=== PATIENT | male | born 1960 | race Caucasian/White ===

== ENCOUNTER 2016-11-15 15:27 | Inpatient (IN) | payer MEDICAID ==
[~2016-11-15 15:27] MED LIST: ALBUTEROL0.83 MG/ML IH; ALDACTONE 25MG25 MG PO; AMOXICILLIN 50500 MG PO; ASPIR LOW81 MG PO; AURALGAN EAR DR15 ML OT; CARVEDILOL12.5 MG PO; ED ZITHROM6 TAB/BOTT PO; NITROGLYCERIN0.4 MG SL; PREDNISONE20 M1 PO; SPIRIVA18 MCG IH; SYMBICORT1 AE2 IH; TOPROL XL25 MG PO; VENTOLIN0.09 MG IH; VIBRAMYCIN100 MG PO; ZESTRIL10 M1 PO
[2016-11-15 16:14] VITALS: BP 77/41
[2016-11-15] MEDS ORDERED: COREG12.5 M1 PO (16:27)
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
[2016-11-15 21:07] VITALS: BP 103/62
[2016-11-15 21:08] VITALS: BP 103/62
--- NOTE | 2016-11-15 22:01 | NUR ---
Pt is made aware that his regular home meds will be held this PM r/t BP. Will reassess in the morning.
[2016-11-15 22:54] VITALS: BP 97/57
[2016-11-16 03:18] VITALS: BP 82/52
--- NOTE | 2016-11-16 03:36 | NUR ---
provider carla garza notified of vs 82/52, 86, 95%, 14, 97.8. pt states that he feels fine, states that he feels better than when he came to the er, pt was sleeping
[2016-11-16 06:24] VITALS: BP 95/55
--- NOTE | 2016-11-16 07:00 | NUR ---
REPORT RECEIVED FROM JHON JARRETT.
--- NOTE | 2016-11-16 07:18 | NUR ---
REST IN BED ON RT SIDE. EXTERNAL DEFIBRILLATOR IN PLACE. TELE ALSO IN PLACE, NSR. DENIES PAIN AT PRESENT. NS INFUSING PER ORDERS. IV SITE APPEARS NORMAL AND INTACT. PTIENT REPORTS FEELING "READY TO GO HOME." CALL LIGHT IN REACH.
[2016-11-16 11:13] VITALS: BP 91/55
[2016-11-16 11:28] VITALS: BP 100/58
--- NOTE | 2016-11-16 12:00 | NUR ---
Pt anticipates discharge to home w/ family and states he has no additional needs.
--- NOTE | 2016-11-16 12:05 | NUR ---
SITTING UPRIGHT IN BED FOR LUNCH. VISITOR PRESENT.
[2016-11-16 13:32] VITALS: BP 106/54
--- NOTE | 2016-11-16 13:43 | NUR ---
DISCHARGE INSTRUCTIONS REVIEWED WITH PATIENT. HE HAS NO QUESTIONS. HOME MEDS RETURNED TO PATIENT. HE DECLINES W/C ASSISTANCE TO VEHICLE. 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 SIGNIFICANT OTHER TO TRANSPORT HOME.
== END 2016-11-16 13:45 | disposition home or self-care (01) | DRG 684 ==
LOC: ED 15:27 → MED/SURG 20:01 → ED 20:01 → MED/SURG 11-16 13:45
PROVIDERS: ADMIT Nurse Practitioner Family
DX: N17.9 Acute kidney failure, unspecified (principal); B34.9 Viral infection, unspecified; I95.9 Hypotension, unspecified; E86.0 Dehydration; E83.39 Other disorders of phosphorus metabolism; R53.81 Other malaise; R53.83 Other fatigue; R91.8 Other nonspecific abnormal finding of lung field; I25.10 Atherosclerotic heart disease of native coronary artery without angina pectoris; J44.9 Chronic obstructive pulmonary disease, unspecified; I25.2 Old myocardial infarction; Z87.891 Personal history of nicotine dependence; Z79.82 Long term (current) use of aspirin
CPT/HCPCS: J7030

== ENCOUNTER → 2016-11-21 | Outpatient (CLI) | payer MEDICAID ==
[~2016-11-21] MED LIST changes: +COREG12.5 M1 PO
== END ==
LOC: VAS 16:16
DX: I42.9 Cardiomyopathy, unspecified (principal)

== ENCOUNTER → 2017-02-18 | Outpatient (CLI) | payer MEDICAID | LOC: LAB 07:53 | DX: I25.10 Atherosclerotic heart disease of native coronary artery without angina pectoris (principal); I43 Cardiomyopathy in diseases classified elsewhere; J44.9 Chronic obstructive pulmonary disease, unspecified ==

== ENCOUNTER → 2017-05-21 | Outpatient (CLI) | payer MEDICAID | LOC: LAB 07:38 | DX: I25.10 Atherosclerotic heart disease of native coronary artery without angina pectoris (principal); J44.9 Chronic obstructive pulmonary disease, unspecified; I43 Cardiomyopathy in diseases classified elsewhere ==

== ENCOUNTER → 2017-06-12 | Outpatient (CLI) | payer MEDICAID | LOC: RAD 06:57 | DX: S43.492A Other sprain of left shoulder joint, initial encounter (principal); X58.XXXA Exposure to other specified factors, initial encounter; M75.82 Other shoulder lesions, left shoulder ==

== ENCOUNTER 2017-07-26 08:00 | Outpatient (RCR) | payer MEDICAID | END 2017-07-26 08:30 | disposition home or self-care (01) | LOC: PT 08:00 | DX: M75.02 Adhesive capsulitis of left shoulder (principal) ==

== ENCOUNTER → 2017-08-20 | Outpatient (CLI) | payer MEDICAID ==
[2017-08-20 10:40] LABS: HEMATOCRIT 41.6 % (42.0-52.0); HEMOGLOBIN 14.2 g/dL (13.5-18.0); MEAN CELL VOLUME 92 fl (78-100); MEAN CORPUSCULAR HEMOGLOBIN 31 pg (27-31); MEAN CORPUSCULAR HGB CONC 34 g/dL (33-37); MEAN PLATELET VOLUME 10.8 fl (7.4-10.4); PLATELET COUNT 282 K/mm3 (130-400); RED BLOOD COUNT 4.52 M/mm3 (4.20-5.60); WHITE BLOOD COUNT 7.3 K/mm3 (4.8-10.8)
[2017-08-20 10:47] LABS: ALBUMIN 4.1 g/dL (3.5-5.0); BUN/CREATININE RATIO 14.5 (6.0-26.0); CALCIUM 9.5 mg/dL (8.4-10.2); POTASSIUM 4.7 mmol/L (3.6-5.0); TOTAL BILIRUBIN 0.6 mg/dL (0.2-1.3); TOTAL PROTEIN 7.2 g/dL (6.3-8.2)
[2017-08-20 11:45] LABS: ERYTHROCYTE SEDIMENTATION RATE 4 mm/hr (0-20)
[2017-08-20 11:55] LABS: LYMPHOCYTE 29 % (20-51); MONOCYTE 6 % (3-10); NEUTROPHILS 54 % (42-75)
== END ==
LOC: LAB 10:01
PROVIDERS: Internal Medicine
DX: I25.10 Atherosclerotic heart disease of native coronary artery without angina pectoris (principal); Z12.11 Encounter for screening for malignant neoplasm of colon; I43 Cardiomyopathy in diseases classified elsewhere; Z12.5 Encounter for screening for malignant neoplasm of prostate

== ENCOUNTER → 2017-08-28 | Outpatient (CLI) | payer MEDICAID | LOC: LAB 12:42 | DX: Z12.11 Encounter for screening for malignant neoplasm of colon (principal) ==

== ENCOUNTER → 2017-11-12 | Outpatient (CLI) | payer MEDICAID ==
[2017-11-12 10:59] LABS: ALBUMIN 3.9 g/dL (3.5-5.0); CALCIUM 9.1 mg/dL (8.4-10.2); POTASSIUM 4.3 mmol/L (3.6-5.0); TOTAL BILIRUBIN 0.4 mg/dL (0.2-1.3); TOTAL PROTEIN 7.1 g/dL (6.3-8.2)
[2017-11-12 11:12] LABS: HEMOGLOBIN 14.6 g/dL (13.5-18.0); MEAN CELL VOLUME 92 fl (78-100); MEAN CORPUSCULAR HEMOGLOBIN 31 pg (27-31); MEAN CORPUSCULAR HGB CONC 33 g/dL (33-37); PLATELET COUNT 279 K/mm3 (130-400); RED BLOOD COUNT 4.79 M/mm3 (4.20-5.60); RED CELL DISTRIBUTION WIDTH 13.2 % (11.5-14.5); WHITE BLOOD COUNT 6.8 K/mm3 (4.8-10.8)
[2017-11-12 11:52] LABS: LYMPHOCYTE 20 % (20-51); MONOCYTE 8 % (3-10); NEUTROPHILS 57 % (42-75)
== END ==
LOC: LAB 10:27
PROVIDERS: Internal Medicine
DX: I25.10 Atherosclerotic heart disease of native coronary artery without angina pectoris (principal); I43 Cardiomyopathy in diseases classified elsewhere; J44.9 Chronic obstructive pulmonary disease, unspecified

== ENCOUNTER 2018-03-05 00:50 | Emergency (ER) | payer MEDICAID ==
[~2018-03-05] VITALS: Ht 175.3 cm; Wt 63.6 kg
[2018-03-05] MEDS ORDERED: LIPITOR20 M2 PO (01:14)
[2018-03-05 01:36] LABS: HEMATOCRIT 41.8 % (42.0-52.0); HEMOGLOBIN 13.9 g/dL (13.5-18.0); MEAN CELL VOLUME 91 fl (78-100); MEAN CORPUSCULAR HEMOGLOBIN 30 pg (27-31); MEAN CORPUSCULAR HGB CONC 33 g/dL (33-37); MEAN PLATELET VOLUME 9.9 fl (7.4-10.4); PLATELET COUNT 283 K/mm3 (130-400); RED BLOOD COUNT 4.61 M/mm3 (4.20-5.60); RED CELL DISTRIBUTION WIDTH 13.4 % (11.5-14.5); WHITE BLOOD COUNT 10.7 K/mm3 (4.8-10.8)
[2018-03-05 01:46] LABS: BUN/CREATININE RATIO 14.4 (6.0-26.0); CALCIUM 8.5 mg/dL (8.4-10.2); POTASSIUM 4.6 mmol/L (3.6-5.0); TOTAL PROTEIN 7.1 g/dL (6.3-8.2)
[2018-03-05 01:50] LABS: LYMPHOCYTE 24 % (20-51); MONOCYTE 6 % (3-10); NEUTROPHILS 58 % (42-75)
[2018-03-05 01:55] LABS: TOTAL BILIRUBIN 0.4 mg/dL (0.2-1.3)
[2018-03-05] MEDS ORDERED: TUSSIONEX PENN115 ML PO (02:28)
[2018-03-05] MEDS ORDERED: PREDNISONE10 MG PO (02:28)
[2018-03-05] MEDS ORDERED: TESSALON PERLE100 M1 PO (02:28)
[2018-03-05] MEDS ORDERED: CIPRO 500MG TA500 MG PO (02:29)
[2018-03-05 02:46] VITALS: BP 97/64
== END 2018-03-05 02:46 | disposition home or self-care (01) ==
LOC: ED 00:50
PROVIDERS: Nurse Practitioner Family
DX: J44.0 Chronic obstructive pulmonary disease with (acute) lower respiratory infection (principal); J18.0 Bronchopneumonia, unspecified organism; J44.1 Chronic obstructive pulmonary disease with (acute) exacerbation; J20.9 Acute bronchitis, unspecified; I25.2 Old myocardial infarction; I25.10 Atherosclerotic heart disease of native coronary artery without angina pectoris; Z79.82 Long term (current) use of aspirin; F17.210 Nicotine dependence, cigarettes, uncomplicated
CPT/HCPCS: J7512

== ENCOUNTER → 2018-08-11 | Outpatient (CLI) | payer MEDICAID ==
[~2018-08-11] VITALS: Ht 170.2 cm; Wt 61.4 kg
[~2018-08-11] MED LIST changes: +ADVAIR DISKUS1 DS2 IH; +CIPRO 500MG TA500 MG PO; +LIPITOR20 M2 PO; +PREDNISONE10 MG PO; +TESSALON PERLE100 M1 PO; +TUSSIONEX PENN115 ML PO
[2018-08-11 09:38] LABS: HEMATOCRIT 44.6 % (42.0-52.0); HEMOGLOBIN 14.8 g/dL (13.5-18.0); MEAN CELL VOLUME 92 fl (78-100); MEAN CORPUSCULAR HEMOGLOBIN 31 pg (27-31); MEAN CORPUSCULAR HGB CONC 33 g/dL (33-37); MEAN PLATELET VOLUME 10.3 fl (7.4-10.4); PLATELET COUNT 281 K/mm3 (130-400); RED BLOOD COUNT 4.85 M/mm3 (4.20-5.60); RED CELL DISTRIBUTION WIDTH 13.1 % (11.5-14.5); WHITE BLOOD COUNT 7.9 K/mm3 (4.8-10.8)
[2018-08-11 09:40] VITALS: BP 116/70
[2018-08-11 09:46] LABS: ALBUMIN 4.1 g/dL (3.5-5.0); POTASSIUM 4.8 mmol/L (3.6-5.0); TOTAL BILIRUBIN 0.6 mg/dL (0.2-1.3); TOTAL PROTEIN 6.8 g/dL (6.3-8.2)
[2018-08-11 11:50] LABS: ERYTHROCYTE SEDIMENTATION RATE 5 mm/hr (0-20); LYMPHOCYTE 22 % (20-51); MONOCYTE 9 % (3-10); NEUTROPHILS 59 % (42-75)
[2018-08-12 02:59] LABS: TESTOSTERONE 949 ng/dL (221-716)
== END ==
LOC: AMSURD 09:21
PROVIDERS: Internal Medicine
DX: M25.511 Pain in right shoulder (principal); R06.02 Shortness of breath; I25.10 Atherosclerotic heart disease of native coronary artery without angina pectoris; Z12.11 Encounter for screening for malignant neoplasm of colon; Z12.5 Encounter for screening for malignant neoplasm of prostate; N52.9 Male erectile dysfunction, unspecified

== ENCOUNTER → 2018-08-18 | Outpatient (CLI) | payer MEDICAID ==
[2018-08-11 09:40] VITALS: BP 116/70
== END ==
LOC: LAB 11:30
DX: Z12.11 Encounter for screening for malignant neoplasm of colon (principal); I25.10 Atherosclerotic heart disease of native coronary artery without angina pectoris; N52.9 Male erectile dysfunction, unspecified

== ENCOUNTER → 2018-09-23 | Day surgery (SDC) | payer MEDICAID ==
[2018-08-11 09:40] VITALS: BP 116/70
== END ==
LOC: MSO 12:51
DX: Z12.11 Encounter for screening for malignant neoplasm of colon (principal); Z80.0 Family history of malignant neoplasm of digestive organs; I42.9 Cardiomyopathy, unspecified; I25.10 Atherosclerotic heart disease of native coronary artery without angina pectoris; I10 Essential (primary) hypertension; F17.210 Nicotine dependence, cigarettes, uncomplicated; J44.9 Chronic obstructive pulmonary disease, unspecified; Z79.899 Other long term (current) drug therapy; Z79.82 Long term (current) use of aspirin
CPT/HCPCS: 00812; J2704; J7120

== ENCOUNTER → 2019-02-10 | Outpatient (CLI) | payer MEDICAID ==
[2018-08-11 09:40] VITALS: BP 116/70
[2019-02-10 08:42] LABS: HEMOGLOBIN 13.9 g/dL (13.5-18.0); MEAN CELL VOLUME 90 fl (78-100); MEAN CORPUSCULAR HEMOGLOBIN 29 pg (27-31); MEAN CORPUSCULAR HGB CONC 32 g/dL (33-37); MEAN PLATELET VOLUME 10.5 fl (7.4-10.4); PLATELET COUNT 273 K/mm3 (130-400); RED BLOOD COUNT 4.77 M/mm3 (4.20-5.60); RED CELL DISTRIBUTION WIDTH 13.6 % (11.5-14.5); WHITE BLOOD COUNT 7.4 K/mm3 (4.8-10.8)
[2019-02-10 08:58] LABS: POTASSIUM 4.4 mmol/L (3.6-5.0); TOTAL BILIRUBIN 0.4 mg/dL (0.2-1.3)
[2019-02-10 09:42] LABS: LYMPHOCYTE 28 % (20-51); MONOCYTE 11 % (3-10); NEUTROPHILS 47 % (42-75)
[2019-02-10 10:02] LABS: ERYTHROCYTE SEDIMENTATION RATE 9 mm/hr (0-20)
== END ==
LOC: LAB 08:25
PROVIDERS: Internal Medicine
DX: I25.10 Atherosclerotic heart disease of native coronary artery without angina pectoris (principal); N52.9 Male erectile dysfunction, unspecified

== ENCOUNTER → 2020-04-04 | Outpatient (CLI) | payer MEDICAID ==
[2018-08-11 09:40] VITALS: BP 116/70
[2020-04-04 08:40] LABS: POTASSIUM 4.7 mmol/L (3.5-5.1)
[2020-04-04 08:41] LABS: CALCIUM 9.1 mg/dL (8.3-10.5)
[2020-04-04 08:42] LABS: TOTAL PROTEIN 7.1 g/dL (6.4-8.3)
[2020-04-04 08:44] LABS: TOTAL BILIRUBIN 0.4 mg/dL (0.2-1.2)
[2020-04-04 08:49] LABS: MAGNESIUM 2.13 mg/dL (1.60-2.60)
[2020-04-04 09:23] LABS: BASO # 0.1 (0.02-0.10); EOS # 0.5 (0.04-0.40); HEMATOCRIT 43.4 % (42.0-52.0); HEMOGLOBIN 14.2 g/dL (13.5-18.0); LYMPH# 1.7 (1.50-4.00); MEAN CELL VOLUME 91 fl (78-100); MEAN CORPUSCULAR HEMOGLOBIN 30 pg (27-31); MEAN CORPUSCULAR HGB CONC 33 g/dL (33-37); MEAN PLATELET VOLUME 10.3 fl (7.4-10.4); NEU # 6.6 (1.40-6.50); PLATELET COUNT 368 K/mm3 (130-400); RED BLOOD COUNT 4.77 M/mm3 (4.20-5.60); RED CELL DISTRIBUTION WIDTH 13.2 % (11.5-14.5); WHITE BLOOD COUNT 9.9 K/mm3 (4.8-10.8)
[2020-04-04 10:07] LABS: EOS % 5.4 % (0.0-4.0)
[2020-04-04 11:16] LABS: ERYTHROCYTE SEDIMENTATION RATE 23 mm/hr (0-20)
== END ==
LOC: LAB 08:18
PROVIDERS: Internal Medicine
DX: Z12.5 Encounter for screening for malignant neoplasm of prostate (principal); I25.10 Atherosclerotic heart disease of native coronary artery without angina pectoris; I43 Cardiomyopathy in diseases classified elsewhere; R91.8 Other nonspecific abnormal finding of lung field

== ENCOUNTER → 2020-04-08 | Outpatient (CLI) | payer MEDICAID ==
[2018-08-11 09:40] VITALS: BP 116/70
== END ==
LOC: CARDREHAB 07:49 → CARDLAB 14:39
DX: I43 Cardiomyopathy in diseases classified elsewhere (principal)
CPT/HCPCS: A9500

== ENCOUNTER → 2020-11-14 | Outpatient (CLI) | payer MEDICAID ==
[2018-08-11 09:40] VITALS: BP 116/70
== END ==
LOC: LAB 11:12
DX: R05 Cough (principal); Z20.822 Contact with and (suspected) exposure to COVID-19

== ENCOUNTER → 2022-01-23 | Outpatient (CLI) | payer MEDICAID | LOC: RAD 08:46 | DX: J44.1 Chronic obstructive pulmonary disease with (acute) exacerbation (principal) ==

== ENCOUNTER 2022-06-12 06:38 | Emergency (ER) | payer MEDICAID ==
[~2022-06-12] VITALS: Ht 172.7 cm; Wt 65.9 kg
[2022-06-12] MEDS ORDERED: COREG12.5 M1 PO (06:51)
[2022-06-12] MEDS ORDERED: OMEPRAZOLE40 MG PO (06:52)
[2022-06-12] MEDS ORDERED: SINGULAIR PO (06:52)
[2022-06-12] MEDS ORDERED: XYZAL5 MG PO (06:52)
[2022-06-12] MEDS ORDERED: CYCLOBENZAPRINE10 M1 PO (08:42)
[2022-06-12 08:58] VITALS: BP 122/77
== END 2022-06-12 08:58 | disposition home or self-care (01) ==
LOC: ED 06:38
DX: M62.830 Muscle spasm of back (principal); F17.210 Nicotine dependence, cigarettes, uncomplicated
CPT/HCPCS: J1885; J2360

== ENCOUNTER → 2022-07-16 | Outpatient (CLI) | payer MEDICAID ==
[~2022-07-16] MED LIST changes: +CYCLOBENZAPRINE10 M1 PO; +OMEPRAZOLE40 MG PO; +SINGULAIR PO; +XYZAL5 MG PO
[2022-07-16 09:08] LABS: BASO # 0.04 K/mm3 (0.02-0.10); EOS # 0.67 K/mm3 (0.04-0.40); EOS % 9.2 % (0.0-4.0); HEMATOCRIT 43.2 % (42.0-52.0); LYMPH# 1.47 K/mm3 (1.50-4.00); MEAN CELL VOLUME 92 fl (78-100); MEAN CORPUSCULAR HEMOGLOBIN 30 pg (27-31); MEAN CORPUSCULAR HGB CONC 32 g/dL (33-37); MEAN PLATELET VOLUME 9.6 fl (7.4-10.4); MONO # 0.53 K/mm3 (0.20-0.80); NEU # 4.55 K/mm3 (1.40-6.50); PLATELET COUNT 283 K/mm3 (130-400); WHITE BLOOD COUNT 7.3 K/mm3 (4.8-10.8)
[2022-07-16 10:17] LABS: ALBUMIN 3.9 g/dL (3.5-5.0); POTASSIUM 4.3 mmol/L (3.5-5.1)
[2022-07-16 10:18] LABS: CALCIUM 9.2 mg/dL (8.3-10.5)
[2022-07-16 10:20] LABS: TOTAL PROTEIN 6.8 g/dL (6.4-8.3)
[2022-07-16 10:21] LABS: TOTAL BILIRUBIN 0.4 mg/dL (0.2-1.2)
[2022-07-16 10:28] LABS: MAGNESIUM 2.17 mg/dL (1.60-2.60)
[2022-07-16 23:01] LABS: TESTOSTERONE 712 ng/dL (221-716)
== END ==
LOC: LAB 08:48
PROVIDERS: Internal Medicine
DX: Z12.5 Encounter for screening for malignant neoplasm of prostate (principal); Z12.11 Encounter for screening for malignant neoplasm of colon; I25.10 Atherosclerotic heart disease of native coronary artery without angina pectoris; I42.9 Cardiomyopathy, unspecified; J44.1 Chronic obstructive pulmonary disease with (acute) exacerbation; J45.40 Moderate persistent asthma, uncomplicated; K90.9 Intestinal malabsorption, unspecified; F52.21 Male erectile disorder

== ENCOUNTER 2023-11-16 20:08 | Emergency (ER) | payer MEDICAID ==
[~2023-11-16] VITALS: Ht 172.7 cm; Wt 61.4 kg
[2023-11-16] MEDS ORDERED: TRELEGY ELLIPT1 EAC1 IH (20:23)
[2023-11-16 20:43] LABS: BASO # 0.02 K/mm3 (0.02-0.10); EOS # 0.06 K/mm3 (0.04-0.40); EOS % 0.9 % (0.0-4.0); HEMOGLOBIN 13.8 g/dL (13.5-18.0); LYMPH# 1.22 K/mm3 (1.50-4.00); MEAN CELL VOLUME 90 fl (78-100); MEAN CORPUSCULAR HEMOGLOBIN 30 pg (27-31); MEAN CORPUSCULAR HGB CONC 34 g/dL (33-37); MEAN PLATELET VOLUME 10.2 fl (7.4-10.4); MONO # 0.65 K/mm3 (0.20-0.80); NEU # 4.78 K/mm3 (1.40-6.50); PLATELET COUNT 241 K/mm3 (130-400); RED BLOOD COUNT 4.58 M/mm3 (4.20-5.60); RED CELL DISTRIBUTION WIDTH 12.8 % (11.5-14.5); WHITE BLOOD COUNT 6.7 K/mm3 (4.8-10.8)
[2023-11-16] MEDS ORDERED: PREDNISONE20 M1 PO (21:42)
[2023-11-16] MEDS ORDERED: GUAIFEN-CODEINE5 ML PO (21:42)
[2023-11-16 21:54] VITALS: BP 116/83
== END 2023-11-16 21:54 | disposition home or self-care (01) ==
LOC: ED 20:08
PROVIDERS: Family Medicine
DX: J44.9 Chronic obstructive pulmonary disease, unspecified (principal); F17.210 Nicotine dependence, cigarettes, uncomplicated

== ENCOUNTER → 2024-07-28 | Outpatient (CLI) | payer MEDICAID ==
[~2024-07-28] MED LIST changes: +GUAIFEN-CODEINE5 ML PO; +TRELEGY ELLIPT1 EAC1 IH
[2024-07-28 10:05] LABS: BASO # 0.01 K/mm3 (0.02-0.10); EOS # 0.26 K/mm3 (0.04-0.40); EOS % 4.3 % (0.0-4.0); HEMATOCRIT 41.4 % (42.0-52.0); HEMOGLOBIN 13.3 g/dL (13.5-18.0); MEAN CELL VOLUME 88 fl (78-100); MEAN CORPUSCULAR HEMOGLOBIN 28 pg (27-31); MEAN CORPUSCULAR HGB CONC 32 g/dL (33-37); MONO # 0.46 K/mm3 (0.20-0.80); NEU # 3.72 K/mm3 (1.40-6.50); PLATELET COUNT 277 K/mm3 (130-400); RED BLOOD COUNT 4.73 M/mm3 (4.20-5.60); RED CELL DISTRIBUTION WIDTH 14.7 % (11.5-14.5); WHITE BLOOD COUNT 6.1 K/mm3 (4.8-10.8)
[2024-07-28 10:10] LABS: ALBUMIN 4.4 g/dL (3.4-4.8)
[2024-07-28 10:11] LABS: CALCIUM 9.7 mg/dL (8.3-10.5)
[2024-07-28 10:12] LABS: TOTAL PROTEIN 7.2 g/dL (6.2-8.1)
[2024-07-28 10:14] LABS: TOTAL BILIRUBIN 0.4 mg/dL (0.2-1.2)
[2024-07-28 10:19] LABS: MAGNESIUM 2.26 mg/dL (1.60-2.60)
== END ==
LOC: LAB 09:37
PROVIDERS: Internal Medicine
DX: Z12.5 Encounter for screening for malignant neoplasm of prostate (principal); Z12.11 Encounter for screening for malignant neoplasm of colon; I25.10 Atherosclerotic heart disease of native coronary artery without angina pectoris; K90.9 Intestinal malabsorption, unspecified

== ENCOUNTER → 2024-08-04 | Outpatient (CLI) | payer MEDICAID | LOC: LAB 11:08 | DX: Z12.11 Encounter for screening for malignant neoplasm of colon (principal) ==